=== PATIENT | male | born 1980 | race African-American/Black ===

== ENCOUNTER 2017-10-11 11:26 | Emergency (ER) | payer SELFPAY ==
[~2017-10-11] VITALS: Ht 185.4 cm; Wt 95.0 kg
[~2017-10-11 11:26] MED LIST: IBUP1TAB7 PO; ROBA750T PO
[2017-10-11 11:29] VITALS: BP 140/94; PULSE 99; RESP 20; TEMP 100.3; O2SAT 96
[2017-10-11] MEDS ORDERED: KETOROLAC TROMETHAMINE 30 MG/ML (IVP) VIAL IVP ONE (11:45)
[2017-10-11] MEDS ORDERED: SODIUM CHLOR 0.9% 1000 ML INJ 1,000 ML IV SCH (11:45)
[2017-10-11] MEDS ORDERED: MORPHINE SULFATE 4 MG/ML INJ IV PUSH ONE ×2 (11:45→13:30)
[2017-10-11] MEDS ORDERED: SODIUM CHLORIDE 0.9% FLUSH 10 ML FLUSH IV FLUSH PRN (11:45)
--- NOTE | 2017-10-11 12:10 | PD ---
HPI Chief Complaint: Respiratory Symptoms Time Seen by Provider: 11:37 Travel History International Travel<30 days: No Contact w/Intl Traveler<30days: No Traveled to known affect area: No History of Present Illness HPI This is a 36-year-old male who presents to the emergency department with left- sided flank pain that started abruptly this morning waking him from sleep, constant, severe, stabbing, making it difficult for him to breathe. He denies any nausea or vomiting and denies any fevers or chills. He has never had pain like this before. PFSH Past Medical History Medical History: Denies Significant Hx Hx Anticoagulant Therapy: No Cardiovascular Problems: No Chemotherapy: No Cerebrovascular Accident: No Diabetes: No Diminished Hearing: No Respiratory: No Past Surgical History Surgical History: No Previous Surgery Social History Alcohol Use: Yes (4 BEERS/DAY) Tobacco Use: Yes (8-10 CIGARETTES/DAY) Substance Use: No Allergies-Medications (Allergen,Severity, Reaction): Coded Allergies: No Known Allergies (Unverified Adverse Reaction, Unknown, 10/11/17) Reported Meds & Prescriptions Reported Meds & Active Scripts Active Review of Systems Except as stated in HPI: all other systems reviewed are Neg Physical Exam Narrative GENERAL: Uncomfortable appearing, gripping his left side SKIN: Focused skin assessment warm and dry. HEAD: Atraumatic. Normocephalic. EYES: Pupils equal and round. No injection or drainage. ENT: Moist mucous membranes NECK: Trachea midline. CARDIOVASCULAR: Regular rate and rhythm. No murmur appreciated. RESPIRATORY: Clear to auscultation. Breath sounds equal bilaterally. GASTROINTESTINAL: Abdomen soft, tender to palpation in the left upper quadrant and left lower quadrants with no rebound or guarding. : Left CVA tenderness. MUSCULOSKELETAL: No obvious deformities. NEUROLOGICAL: Awake and alert. No obvious cranial nerve deficits. Moving all extremities. PSYCHIATRIC: Appropriate mood and affect; insight and judgment normal. Data Data Last Documented VS Vital Signs Date Time Temp Pulse Resp B/P (MAP) Pulse Ox O2 Delivery O2 Flow Rate FiO2 10/11/17 12:21 98 Room Air 10/11/17 11:29 100.3 99 20 Orders Orders Complete Blood Count With Diff (10/11/17 11:45) Comprehensive Metabolic Panel (10/11/17 11:45) Lipase (10/11/17 11:45) Ct Abd/Pel W/O Iv Contrast (10/11/17 11:45) Iv Access Insert/Monitor (10/11/17 11:45) Ecg Monitoring (10/11/17 11:45) Oximetry (10/11/17 11:45) Morphine Inj (Morphine Inj) (10/11/17 11:45) Sodium Chlor 0.9% 1000 Ml Inj (Ns 1000 M (10/11/17 11:45) Sodium Chloride 0.9% Flush (Ns Flush) (10/11/17 11:45) Ketorolac Inj (Toradol Inj) (10/11/17 11:45) Urinalysis - C+S If Indicated (10/11/17 12:17) Chest, Single Ap (10/11/17 ) Ct Pulmonary Angiogram (10/11/17 ) Morphine Inj (Morphine Inj) (10/11/17 13:30) Labs Laboratory Tests Test 10/11/17 12:10 White Blood Count 10.6 TH/MM3 Red Blood Count 4.76 MIL/MM3 Hemoglobin 13.8 GM/DL Hematocrit 40.4 % Mean Corpuscular Volume 84.8 FL Mean Corpuscular Hemoglobin 29.1 PG Mean Corpuscular Hemoglobin Concent 34.3 % Red Cell Distribution Width 13.2 % Platelet Count 325 TH/MM3 Mean Platelet Volume 8.3 FL Neutrophils (%) (Auto) 68.5 % Lymphocytes (%) (Auto) 18.8 % Monocytes (%) (Auto) 9.5 % Eosinophils (%) (Auto) 2.8 % Basophils (%) (Auto) 0.4 % Neutrophils # (Auto) 7.3 TH/MM3 Lymphocytes # (Auto) 2.0 TH/MM3 Monocytes # (Auto) 1.0 TH/MM3 Eosinophils # (Auto) 0.3 TH/MM3 Basophils # (Auto) 0.0 TH/MM3 CBC Comment DIFF FINAL Differential Comment Blood Urea Nitrogen 13 MG/DL Creatinine 1.21 MG/DL Random Glucose 78 MG/DL Total Protein 7.8 GM/DL Albumin 3.3 GM/DL Calcium Level 8.7 MG/DL Alkaline Phosphatase 52 U/L Aspartate Amino Transf (AST/SGOT) 15 U/L Alanine Aminotransferase (ALT/SGPT) 14 U/L Total Bilirubin 0.4 MG/DL Sodium Level 138 MEQ/L Potassium Level 3.9 MEQ/L Chloride Level 105 MEQ/L Carbon Dioxide Level 28.1 MEQ/L Anion Gap 5 MEQ/L Estimat Glomerular Filtration Rate 83 ML/MIN Lipase 86 U/L MDM Medical Decision Making Medical Screen Exam Complete: Yes Emergency Medical Condition: Yes Interpretation(s) temperature 100.3, mild tachycardia, hypertension no leukocytosis electrolytes within normal limits lipase normal Last 24 hours Impressions Abdomen/Pelvis CT 10/11/17 1145 Signed Impressions: Service Date/Time: October 12:06 - CONCLUSION: 1. Negative renal colic CT. 2. There are 2 masslike densities in the lower lateral left lung measuring up to 2.7 cm. Since these opacities are adjacent to the left hemidiaphragm, these could be causing left flank pain. Junior King MD Chest X-Ray 10/11/17 0000 Signed Impressions: Service Date/Time: October 12:29 - CONCLUSION: No acute cardiopulmonary process. Delfino Head MD CT of the chest: Multiple noncalcified pulmonary nodular densities Differential Diagnosis Nephrolithiasis, pyelonephritis, pneumonia, pulmonary embolism, lung cancer Narrative Course This is a 36-year-old male who presents to the emergency department with pain in his flank associated with some shortness of breath. Patient is very uncomfortable on arrival. Initially I obtained a CT scan to evaluate for kidney stone which was negative but demonstrated some pulmonary nodules in the left lower lung. Dedicated CT of the left lower lung demonstrates multiple pulmonary nodules which could be infectious versus malignancy. Patient feels much better after pain control. He does have a low-grade temperature of 100.3. This may represent pneumonia. I still think he requires outpatient follow- up. He was given a copy of his CT and the recommendation that he obtain an outpatient PET scan. He will be referred to [facility]. Diagnosis Primary Impression: Flank pain Patient Instructions: General Instructions Additional Instructions: If you develop severe chest pain, shortness of breath, sweating, lightheadedness , dizziness or difficulty breathing return to the emergency department immediately. It is very important that you follow-up with a primary care physician regarding your CT findings. You have several nodules in your left lung which may be infection but we cannot rule out nodules or cancer. This needs to be followed up as an outpatient. Complete your course of antibiotics and make an appointment with [facility]. Med/Other Pt SpecificInfo: Prescription(s) given Scripts Tramadol (Tramadol) 50 Mg Tab 50 MG PO Q6H Y for PAIN, #10 TAB 0 Refills Prov: Prachi Choudhary MD 10/11/17 Azithromycin (Azithromycin) 250 Mg Tab 250 MG PO DIRECTED for Infection, #6 TAB 0 Refills Take 2 tabs (500 mg) on day 1 then 1 tab daily x 4 days. Prov: Prachi Choudhary MD 10/11/17 Disposition: 01 DISCHARGE HOME Condition: Stable Prachi Choudhary MD Oct 11, 2017 12:10
[2017-10-11 12:21] VITALS: O2SAT 98
[2017-10-11 12:38] LABS: AUTOMATED NEUTROPHIL # 7.3 TH/MM3 (1.8-7.7); BASOPHIL % 0.4 % (0.0-2.0); EOSINOPHIL # 0.3 TH/MM3 (0-0.4); EOSINOPHIL % 2.8 % (0.0-4.0); HEMATOCRIT 40.4 % (39.0-51.0); HEMOGLOBIN 13.8 GM/DL (13.0-17.0); LYMPH % 18.8 % (9.0-44.0); MEAN CELL VOLUME 84.8 FL (80.0-100.0); MEAN CORPUSCULAR HEMOGLOBIN 29.1 PG (27.0-34.0); MEAN CORPUSCULAR HGB CONC 34.3 % (32.0-36.0); MEAN PLATELET VOLUME 8.3 FL (7.0-11.0); MONO % 9.5 % (0.0-8.0); NEUT % 68.5 % (16.0-70.0); PLATELET COUNT 325 TH/MM3 (150-450); RED BLOOD COUNT 4.76 MIL/MM3 (4.50-5.90); RED CELL DISTRIBUTION WIDTH 13.2 % (11.6-17.2); WHITE BLOOD COUNT 10.6 TH/MM3 (4.0-11.0)
--- NOTE | 2017-10-11 12:48 | RADRPT ---
EXAM DATE/TIME: 10/11/2017 12:06 [facility] COMPARISON: CHEST SINGLE AP, October 11, 2017, 12:29. INDICATIONS : Patient awoke with left flank pain ORAL CONTRAST: No oral contrast ingested. RADIATION DOSE: 10.30 CTDIvol (mGy) MEDICAL HISTORY : None SURGICAL HISTORY : None. ENCOUNTER: Initial ACUITY: 1 day PAIN SCALE: 10/10 LOCATION: Left flank TECHNIQUE: Renal colic protocol. Volumetric scanning of the abdomen and pelvis was performed. Using automated e xposure control and adjustment of the mA and/or kV according to patient size, radiation dose was kept as low as reasonably achievable to obtain optimal diagnostic quality images. DICOM format image jodie a is available electronically for review and comparison. FINDINGS: Right side: No calcified renal stones. No hydronephrosis. No calcifications along the course of the right ureter. Left side: No calcified renal stones. No hydronephrosis. No calcifications along the course of the left ureter. Bladder: Smooth margins. No calcifications in the lumen. Other: No calcified gallstones. Abnormal appearance to the left lower lobe with 2 mass like opacities in the posterior and lateral costophrenic angle measuring 2.3 cm and 2.7 cm respectively. No evidence pleur al effusion. Osseous structures are grossly intact. CONCLUSION: 1. Negative renal colic CT. 2. There are 2 masslike densities in the lower lateral left lung measuring up to 2.7 cm. Since these opacities are adjacent to the left hemidiaphragm, these could be causing left flank pain. Junior King MD on October 11, 2017 at 12:43 Board Certified Radiologist. This report was verified electronically.
--- NOTE | 2017-10-11 12:51 | RADRPT ---
EXAM DATE/TIME: 10/11/2017 12:29 [facility] COMPARISON: CHEST SINGLE AP, July 11, 2016, 10:54. INDICATIONS : Chest pain. MEDICAL HISTORY : None. SURGICAL HISTORY : None. ENCOUNTER: Initial ACUITY: 1 day PAIN SCORE: 6/10 LOCATION: Bilateral chest FINDINGS: A single view of the chest demonstrates the lungs to be symmetrically aerated without evidence of mas s, infiltrate or effusion. The cardiomediastinal contours are unremarkable. Osseous structures are intact with a levoscoliosis of the dorsal spine which may be positional. CONCLUSION: No acute cardiopulmonary process. Delfino Head MD on October 11, 2017 at 12:48 Board Certified Radiologist. This report was verified electronically.
[2017-10-11 13:03] LABS: ALBUMIN 3.3 GM/DL (3.4-5.0); AST (GOT) 15 U/L (15-37); BICARBONATE 28.1 MEQ/L (21.0-32.0); BLOOD UREA NITROGEN 13 MG/DL (7-18); CALCIUM 8.7 MG/DL (8.5-10.1); CHLORIDE 105 MEQ/L (98-107); CREATININE 1.21 MG/DL (0.60-1.30); GLOMERULAR FILTRATION RATE 83 ML/MIN (>89); GLUCOSE,RANDOM 78 MG/DL (74-106); SODIUM (NA) 138 MEQ/L (136-145)
[2017-10-11 13:06] LABS: ALKALINE PHOSPHATASE 52 U/L (45-117); ALT (GPT) 14 U/L (12-78); TOTAL BILIRUBIN ADULT 0.4 MG/DL (0.2-1.0); TOTAL PROTEIN 7.8 GM/DL (6.4-8.2)
[2017-10-11] MEDS ORDERED: IOHEXOL 350 MG/ML 10 ML VIAL (for RAD DIAG) IVCONTRAST ONE (13:29)
--- NOTE | 2017-10-11 14:00 | RADRPT ---
EXAM DATE/TIME: 10/11/2017 13:29 [facility] COMPARISON: No previous studies available for comparison. INDICATIONS : Left lateral chest pain, back pain IV CONTRAST: 60 cc Omnipaque 350 (iohexol) IV RADIATION DOSE: 15.15 CTDIvol (mGy) MEDICAL HISTORY : None SURGICAL HISTORY : None. ENCOUNTER: Initial ACUITY: 1 day PAIN SCALE: 9/10 LOCATION: chest TECHNIQUE: Volumetric scanning of the chest was performed using a pulmonary embolism protocol MIP images were re constructed. Using automated exposure control and adjustment of the mA and/or kV according to patien t size, radiation dose was kept as low as reasonably achievable to obtain optimal diagnostic quality images. DICOM format image data is available electronically for review and comparison. Follow-up recommendations for detected pulmonary nodules are based at a minimum on nodule size and pa tient risk factors according to Fleischner Society Guidelines. FINDINGS: PULMONARY ARTERIES: No filling defects are seen in the pulmonary arteries through the segmental level. LUNGS: Nodular densities are noted within the left lower lobe measuring 2.3 cm, 2.5 cm and 0.9 cm. There is also a nodular density within the right lower lobe measuring 0.9 cm. Differential diagnosis includes nodular infiltrates or true pulmonary nodules. If these do represent true pulmonary nodules, metastat ic disease should be considered. PLEURAE: There is no pleural thickening or pleural effusion. MEDIASTINUM: There is good visualization of the great vessels of the middle mediastinum. No evidence of mediastin al or hilar adenopathy/mass. Coronary artery calcifications. MUSCULOSKELETAL: Mild scoliosis of the thoracic spine is noted. MISCELLANEOUS: The visualized upper abdominal organs demonstrate no acute abnormality. CONCLUSION: 1. Multiple noncalcified pulmonary nodular densities bilaterally measuring 2.5, 2.3 and 0.9 cm within the left lower lobe and 0.9 cm within the right lower lobe. Differential includes nodular infiltrate s or true pulmonary nodules. PET/CT scan may be helpful for further evaluation if these do represent true pulmonary nodules. 2. No evidence of pulmonary embolism. 3. Coronary artery calcifications. Jean-Pierre Jordan MD on October 11, 2017 at 13:49 Board Certified Radiologist. This report was verified electronically.
[2017-10-11] MEDS ORDERED: TRAM50TA PO (14:10)
[2017-10-11] MEDS ORDERED: AZIT250T3 PO (14:10)
[2017-10-11 14:24] LABS: BILIRUBIN, URINE NEG (NEG); BLOOD, URINE NEG (NEG); GLUCOSE,URINE NEG (NEG); HYALINE CAST, URINE 1 /lpf (RARE); KETONE, URINE NEG (NEG); MUCUS URINE FEW /lpf (OCC); NITRITE,URINE NEG (NEG); PH, URINE 6.5 (5.0-8.5); URINE COLOR YELLOW (YELLW/STRAW); URINE LEUKOCYTE ESTERASE NEG (NEG)
== END 2017-10-11 14:41 | disposition home or self-care (01) ==
LOC: NEPD 11:26
DX: R10.9 Unspecified abdominal pain (principal); R06.02 Shortness of breath; F17.210 Nicotine dependence, cigarettes, uncomplicated
CPT/HCPCS: 71045; 71275; 74176; 80053; 81001; 83690; 85025; 96361; 96374; 96375; 96376; 99285; J1885; J2270; J7030; Q9967

== ENCOUNTER 2017-10-12 04:53 | Observation (INO) | payer SELFPAY ==
[~2017-10-12] VITALS: Ht 185.4 cm; Wt 95.0 kg
[~2017-10-12 04:53] MED LIST changes: +AZIT250T3 PO; -IBUP1TAB7 PO; -ROBA750T PO; +TRAM50TA PO
[2017-10-12 04:58] VITALS: BP 172/69; PULSE 89; RESP 20; TEMP 98.8; O2SAT 99
[2017-10-12] MEDS ORDERED: KETOROLAC TROMETHAMINE 30 MG/ML (IVP) VIAL IV PUSH ONE (05:15)
[2017-10-12] MEDS ORDERED: ONDANSETRON HCL 4 MG/2 ML VIAL IV PUSH ONE (05:15)
[2017-10-12] MEDS ORDERED: FAMOTIDINE 20 MG/2 ML VIAL IV PUSH SCH (05:15)
--- NOTE | 2017-10-12 06:39 | PD ---
HPI Chief Complaint: Flank/Kidney Pain Time Seen by Provider: 05:01 Travel History International Travel<30 days: No Contact w/Intl Traveler<30days: No Traveled to known affect area: No History of Present Illness HPI Patient is a 36-year-old male who was here yesterday less than 24 hours ago in the ER with sudden onset of left-sided chest pain and shortness of breath severe stabbing back pain. He was seen CAT scan was done of his chest abdomen which showed 2.5 cm nodules versus nodular infiltrates in the left lung he was sent home on azithromycin and tramadol. He is coming back tonight with worsening severe pain. Also getting worse shortness of breath getting worse unable to tolerate sharp stabbing pain in the left lower back area to flank left area pain is 10 out of 10 shortness of breath is associated with it and diaphoresis. Patient denies travel denies outside of the country nor incarceration. Patient denies any risk factors for tuberculosis. Patient did start using a vaporizer pen this last week. No sick contacts [facility] Past Medical History Medical History: Denies Significant Hx Hx Anticoagulant Therapy: No Cardiovascular Problems: No Chemotherapy: No Cerebrovascular Accident: No Diabetes: No Diminished Hearing: No Respiratory: No Past Surgical History Surgical History: No Previous Surgery Social History Alcohol Use: Yes (4 BEERS/DAY) Tobacco Use: Yes (8-10 CIGARETTES/DAY) Substance Use: No Allergies-Medications (Allergen,Severity, Reaction): Coded Allergies: No Known Allergies (Unverified Allergy, Unknown, 10/12/17) Reported Meds & Prescriptions Reported Meds & Active Scripts Active Physical Exam Narrative GENERAL: Patient appears to be in severe pain and emotional distress SKIN: Warm and dry. HEAD: Atraumatic. Normocephalic. EYES: Pupils equal and round. No scleral icterus. No injection or drainage. ENT: No nasal bleeding or discharge. Mucous membranes pink and moist. NECK: Trachea midline. No JVD. CARDIOVASCULAR: Regular rate and rhythm. RESPIRATORY: . Left lower lung there is decreased breath sound . GASTROINTESTINAL: Abdomen soft, non-tender, nondistended. Hepatic and splenic margins not palpable. MUSCULOSKELETAL: Extremities without clubbing, cyanosis, or edema. No obvious deformities. NEUROLOGICAL: Awake and alert. No obvious cranial nerve deficits. Motor grossly within normal limits. Five out of 5 muscle strength in the arms and legs. Normal speech. PSYCHIATRIC: Appropriate mood and affect; insight and judgment normal. Data Data Last Documented VS Orders Orders Ondansetron Inj (Zofran Inj) (10/12/17 05:15) Famotidine Inj (Pepcid Inj) (10/12/17 05:15) Ketorolac Inj (Toradol Inj) (10/12/17 05:15) Complete Blood Count With Diff (10/12/17 06:26) Comprehensive Metabolic Panel (10/12/17 06:26) Blood Culture (10/12/17 06:26) Sputum Culture And Gram Stain (10/12/17 06:26) Albuterol-Ipratropium Neb (Duoneb Neb) (10/12/17 06:45) Admit Order (Ed Use Only) (10/12/17 07:57) Labs Laboratory Tests Test 10/12/17 06:30 White Blood Count 17.4 TH/MM3 Red Blood Count 4.62 MIL/MM3 Hemoglobin 13.5 GM/DL Hematocrit 39.7 % Mean Corpuscular Volume 85.9 FL Mean Corpuscular Hemoglobin 29.2 PG Mean Corpuscular Hemoglobin Concent 34.0 % Red Cell Distribution Width 13.1 % Platelet Count 359 TH/MM3 Mean Platelet Volume 8.9 FL Neutrophils (%) (Auto) 64.4 % Lymphocytes (%) (Auto) 25.0 % Monocytes (%) (Auto) 8.2 % Eosinophils (%) (Auto) 2.2 % Basophils (%) (Auto) 0.2 % Neutrophils # (Auto) 11.2 TH/MM3 Lymphocytes # (Auto) 4.3 TH/MM3 Monocytes # (Auto) 1.4 TH/MM3 Eosinophils # (Auto) 0.4 TH/MM3 Basophils # (Auto) 0.0 TH/MM3 CBC Comment DIFF FINAL Differential Comment Blood Urea Nitrogen 13 MG/DL Creatinine 1.05 MG/DL Random Glucose 91 MG/DL Total Protein 8.3 GM/DL Albumin 3.5 GM/DL Calcium Level 8.8 MG/DL Alkaline Phosphatase 58 U/L Aspartate Amino Transf (AST/SGOT) 19 U/L Alanine Aminotransferase (ALT/SGPT) 16 U/L Total Bilirubin 0.4 MG/DL Sodium Level 139 MEQ/L Potassium Level 4.1 MEQ/L Chloride Level 102 MEQ/L Carbon Dioxide Level 30.2 MEQ/L Anion Gap 7 MEQ/L Estimat Glomerular Filtration Rate 97 ML/MIN MDM Medical Decision Making Medical Screen Exam Complete: Yes Emergency Medical Condition: Yes Differential Diagnosis diagnosis include nodular densities in the lung field versus nodular infiltrates of the left lung bacterial infection versus TB possible lower on differential due to lower lobe septic emboli, second visit within 24 hrs and elevated wbc now greatly increased from earlier Narrative Course CT reviewed by this MD and I feel with worsening cough SOB and lab show WBC jump to 17 I will cover him with levaquin and admit for Pulmonary consult possible biopsy and pain management inpt Diagnosis Primary Impression: Pneumonia Qualified Codes: J18.1 - Lobar pneumonia, unspecified organism Scripts Levofloxacin (Levaquin) 500 Mg Tablet 500 MG PO DAILY for Infection for 10 Days, #10 TAB 0 Refills Prov: Jasper Estrella DO 10/13/17 Methylprednisolone Dosepak (Medrol Dosepak) 4 Mg Dspk 4 MG PO DIRECTED for Inflammation, #1 DSPK 0 Refills Per Pharmacist direction Prov: Jasper Estrella DO 10/13/17 Albuterol 18 GM Inh (Ventolin Hfa 18 GM Inh) 90 Mcg/Act Aer 2 PUFF INH Q4H Y for SHORTNESS OF BREATH, #1 INHALER 0 Refills Prov: Jasper Estrella DO 10/13/17 Multiple Vitamins W/ Minerals (Thera M Plus) 1 Tab 1 TAB PO DAILY for Nutritional Supplement, #30 TAB Prov: Jasper Estrella DO 10/13/17 Thiamine HCl (Gnp Vitamin B-1) 100 Mg Tab 100 MG PO DAILY for Nutritional Supplement, #30 TAB Prov: Jasper Estrella DO 10/13/17 Folic Acid (Folic Acid) 1 Mg Tablet 1 MG PO DAILY for Nutritional Supplement, #30 TAB Prov: Jasper Estrella DO 10/13/17 Famotidine (Famotidine) 20 Mg Tab 20 MG PO BID for Manage Heartburn, #60 TAB Prov: Jasper Estrella DO 10/13/17 [guaiFENesin ER] 600 MG TABCR No Conflict Check 600 MG PO BID for Cough, #60 TAB Prov: Jasper Estrella DO 10/13/17 Oxycodone HCl/Acetaminophen (Oxycodone-Acetaminophen 5-325) 5 Mg-325 Mg Tablet 1 TAB PO Q6H Y for PAIN SCALE 6 TO 10, #30 TAB Prov: Jasper Estrella DO 10/13/17 Nicotine (Eq Nicotine) 14 Mg/24 Hour Dis 1 PATCH T-DERMAL DAILY for TOBACCO, #30 PATCH Prov: Jasper Estrella DO 10/13/17 Abdirashid Cohen MD Oct 12, 2017 06:39
[2017-10-12] MEDS ORDERED: RESP: ALBUTEROL 2.5 MG/IPRATROPIUM 0.5 MG NEB (SCH) NEB ONE (06:45)
[2017-10-12 06:50] LABS: AUTOMATED NEUTROPHIL # 11.2 TH/MM3 (1.8-7.7); BASOPHIL % 0.2 % (0.0-2.0); EOSINOPHIL # 0.4 TH/MM3 (0-0.4); EOSINOPHIL % 2.2 % (0.0-4.0); HEMATOCRIT 39.7 % (39.0-51.0); HEMOGLOBIN 13.5 GM/DL (13.0-17.0); LYMPHOCYTE # 4.3 TH/MM3 (1.0-4.8); MEAN CELL VOLUME 85.9 FL (80.0-100.0); MEAN CORPUSCULAR HEMOGLOBIN 29.2 PG (27.0-34.0); MEAN PLATELET VOLUME 8.9 FL (7.0-11.0); MONO % 8.2 % (0.0-8.0); MONOCYTE # 1.4 TH/MM3 (0-0.9); NEUT % 64.4 % (16.0-70.0); PLATELET COUNT 359 TH/MM3 (150-450); RED BLOOD COUNT 4.62 MIL/MM3 (4.50-5.90); RED CELL DISTRIBUTION WIDTH 13.1 % (11.6-17.2); WHITE BLOOD COUNT 17.4 TH/MM3 (4.0-11.0)
[2017-10-12 07:07] LABS: ALBUMIN 3.5 GM/DL (3.4-5.0); ALT (GPT) 16 U/L (12-78); AST (GOT) 19 U/L (15-37); BICARBONATE 30.2 MEQ/L (21.0-32.0); BLOOD UREA NITROGEN 13 MG/DL (7-18); CALCIUM 8.8 MG/DL (8.5-10.1); CHLORIDE 102 MEQ/L (98-107); CREATININE 1.05 MG/DL (0.60-1.30); GLOMERULAR FILTRATION RATE 97 ML/MIN (>89); GLUCOSE,RANDOM 91 MG/DL (74-106); SODIUM (NA) 139 MEQ/L (136-145)
[2017-10-12 07:09] LABS: ALKALINE PHOSPHATASE 58 U/L (45-117); TOTAL BILIRUBIN ADULT 0.4 MG/DL (0.2-1.0); TOTAL PROTEIN 8.3 GM/DL (6.4-8.2)
--- NOTE | 2017-10-12 07:24 | PD ---
Physical Exam Narrative GENERAL: SKIN: Warm and dry. HEAD: Atraumatic. Normocephalic. EYES: Pupils equal and round. No scleral icterus. No injection or drainage. ENT: No nasal bleeding or discharge. Mucous membranes pink and moist. NECK: Trachea midline. No JVD. CARDIOVASCULAR: Regular rate and rhythm. RESPIRATORY: No accessory muscle use. Clear to auscultation. Breath sounds equal bilaterally. (apparent pleuritic cp with deep breath noted) GASTROINTESTINAL: Abdomen soft, non-tender, nondistended. Hepatic and splenic margins not palpable. MUSCULOSKELETAL: Extremities without clubbing, cyanosis, or edema. No obvious deformities. NEUROLOGICAL: Awake and alert. No obvious cranial nerve deficits. Motor grossly within normal limits. Five out of 5 muscle strength in the arms and legs. Normal speech. PSYCHIATRIC: Appropriate mood and affect; insight and judgment normal. Data Data Last Documented VS Vital Signs Date Time Temp Pulse Resp B/P (MAP) Pulse Ox O2 Delivery O2 Flow Rate FiO2 10/12/17 04:58 98.8 89 20 172/69 (103) 99 Orders Orders Ondansetron Inj (Zofran Inj) (10/12/17 05:15) Famotidine Inj (Pepcid Inj) (10/12/17 05:15) Ketorolac Inj (Toradol Inj) (10/12/17 05:15) Complete Blood Count With Diff (10/12/17 06:26) Comprehensive Metabolic Panel (10/12/17 06:26) Blood Culture (10/12/17 06:26) Sputum Culture And Gram Stain (10/12/17 06:26) Albuterol-Ipratropium Neb (Duoneb Neb) (10/12/17 06:45) Admit Order (Ed Use Only) (10/12/17 07:57) Labs Laboratory Tests Test 10/12/17 06:30 White Blood Count 17.4 TH/MM3 Red Blood Count 4.62 MIL/MM3 Hemoglobin 13.5 GM/DL Hematocrit 39.7 % Mean Corpuscular Volume 85.9 FL Mean Corpuscular Hemoglobin 29.2 PG Mean Corpuscular Hemoglobin Concent 34.0 % Red Cell Distribution Width 13.1 % Platelet Count 359 TH/MM3 Mean Platelet Volume 8.9 FL Neutrophils (%) (Auto) 64.4 % Lymphocytes (%) (Auto) 25.0 % Monocytes (%) (Auto) 8.2 % Eosinophils (%) (Auto) 2.2 % Basophils (%) (Auto) 0.2 % Neutrophils # (Auto) 11.2 TH/MM3 Lymphocytes # (Auto) 4.3 TH/MM3 Monocytes # (Auto) 1.4 TH/MM3 Eosinophils # (Auto) 0.4 TH/MM3 Basophils # (Auto) 0.0 TH/MM3 CBC Comment DIFF FINAL Differential Comment Blood Urea Nitrogen 13 MG/DL Creatinine 1.05 MG/DL Random Glucose 91 MG/DL Total Protein 8.3 GM/DL Albumin 3.5 GM/DL Calcium Level 8.8 MG/DL Alkaline Phosphatase 58 U/L Aspartate Amino Transf (AST/SGOT) 19 U/L Alanine Aminotransferase (ALT/SGPT) 16 U/L Total Bilirubin 0.4 MG/DL Sodium Level 139 MEQ/L Potassium Level 4.1 MEQ/L Chloride Level 102 MEQ/L Carbon Dioxide Level 30.2 MEQ/L Anion Gap 7 MEQ/L Estimat Glomerular Filtration Rate 97 ML/MIN [facility] Medical Record Reviewed: Yes Supervised Visit with CHRISTINE: No Narrative Course seen and noted to have nodular infiltrates on ct, was seen and treated yesterday with tramadol and zpak. however pt returned b/c of worsening pain, of concern repeat cbc wbc increased from 10 to 17k, dr moraes signed out pending lab results and suggested admission. Sepsis Criteria SIRS Criteria (2 or more): WBC > 77308, < 4000 or > 10% bands Sepsis Criteria (SIRS+source): Infect source susp/known Diagnosis Primary Impression: Pneumonia Qualified Codes: J18.1 - Lobar pneumonia, unspecified organism Admitting Information Admitting Physician Requests: Observation Scripts Levofloxacin (Levaquin) 500 Mg Tablet 500 MG PO DAILY for Infection for 10 Days, #10 TAB 0 Refills Prov: Jasper Estrella DO 10/13/17 Methylprednisolone Dosepak (Medrol Dosepak) 4 Mg Dspk 4 MG PO DIRECTED for Inflammation, #1 DSPK 0 Refills Per Pharmacist direction Prov: Jasper Estrella DO 10/13/17 Albuterol 18 GM Inh (Ventolin Hfa 18 GM Inh) 90 Mcg/Act Aer 2 PUFF INH Q4H Y for SHORTNESS OF BREATH, #1 INHALER 0 Refills Prov: Jasper Estrella DO 10/13/17 Multiple Vitamins W/ Minerals (Thera M Plus) 1 Tab 1 TAB PO DAILY for Nutritional Supplement, #30 TAB Prov: Jasper Estrella DO 10/13/17 Thiamine HCl (Gnp Vitamin B-1) 100 Mg Tab 100 MG PO DAILY for Nutritional Supplement, #30 TAB Prov: Jasper Estrella DO 10/13/17 Folic Acid (Folic Acid) 1 Mg Tablet 1 MG PO DAILY for Nutritional Supplement, #30 TAB Prov: Jasepr Estrella DO 10/13/17 Famotidine (Famotidine) 20 Mg Tab 20 MG PO BID for Manage Heartburn, #60 TAB Prov: Jasper Estrella DO 10/13/17 [guaiFENesin ER] 600 MG TABCR No Conflict Check 600 MG PO BID for Cough, #60 TAB Prov: Jasper Estrella DO 10/13/17 Oxycodone HCl/Acetaminophen (Oxycodone-Acetaminophen 5-325) 5 Mg-325 Mg Tablet 1 TAB PO Q6H Y for PAIN SCALE 6 TO 10, #30 TAB Prov: Jasper Estrella DO 10/13/17 Nicotine (Eq Nicotine) 14 Mg/24 Hour Dis 1 PATCH T-DERMAL DAILY for TOBACCO, #30 PATCH Prov: Jasper Estrella DO 10/13/17 Marlon Ge MD Oct 12, 2017 07:24
[2017-10-12 08:13] VITALS: BP 146/69; PULSE 71; RESP 18; O2SAT 99
[2017-10-12] MEDS ORDERED: LORazepam 2 MG TAB PO PRN ×2 (08:45)
[2017-10-12] MEDS ORDERED: METOCLOPRAMIDE HCL 10 MG/2 ML VIAL IV PUSH PRN (08:45)
[2017-10-12] MEDS ORDERED: ONDANSETRON HCL 4 MG/2 ML VIAL IVP PRN (08:45)
[2017-10-12] MEDS ORDERED: LACTULOSE SYRUP 20 GM/30 ML CUP PO PRN (08:45)
[2017-10-12] MEDS ORDERED: LORazepam 2 MG/ML VIAL IV PUSH PRN ×8 (08:45)
[2017-10-12] MEDS ORDERED: LORazepam 1 MG TAB PO PRN ×2 (08:45)
[2017-10-12] MEDS ORDERED: MORPHINE SULFATE 4 MG/ML INJ IV PUSH PRN ×2 (08:45)
[2017-10-12] MEDS ORDERED: RESP: ALBUTEROL 2.5 MG/IPRATROPIUM 0.5 MG NEB (PRN) INH (08:45)
[2017-10-12] MEDS ORDERED: cloNIDine HCL 0.1 MG TAB PO PRN (08:45)
[2017-10-12] MEDS ORDERED: BISACODYL 10 MG SUPP RECTAL PRN (08:45)
[2017-10-12] MEDS ORDERED: ACETAMINOPHEN 325 MG TAB PO PRN ×2 (08:45)
[2017-10-12] MEDS ORDERED: SODIUM CHLORIDE 0.9% FLUSH 10 ML FLUSH IV FLUSH PRN ×3 (08:45)
[2017-10-12] MEDS ORDERED: MAGNESIUM HYDROXIDE SUSP 30 ML CUP PO PRN (08:45)
[2017-10-12] MEDS ORDERED: SENNOSIDES 8.6 MG TAB PO PRN (08:45)
[2017-10-12] MEDS ORDERED: oxyCODONE/ACETAMINOPHEN 5 MG/325 MG TAB PO PRN (08:45)
[2017-10-12] MEDS ORDERED: MORPHINE SULFATE 2 MG/ML INJ IV PUSH PRN (08:45)
[2017-10-12] MEDS ORDERED: ZOLPIDEM TARTRATE 5 MG TAB PO PRN (08:45)
[2017-10-12] MEDS ORDERED: NALOXONE HCL 0.4 MG/ML AMP IV PUSH PRN (08:45)
[2017-10-12] MEDS ORDERED: FLUMAZENIL 0.5 MG/5 ML VIAL IV PUSH PRN ×2 (08:45)
[2017-10-12] MEDS: SODIUM CHLORIDE 0.9% FLUSH 10 ML FLUSH IV FLUSH SCH ×2 (09:00→21:00)
[2017-10-12] MEDS ORDERED: SODIUM CHLORIDE 0.9% FLUSH 10 ML FLUSH IV FLUSH SCH ×2 (09:00)
[2017-10-12] MEDS: DOCUSATE SODIUM 50 MG/SENNA 8.6 MG TAB PO SCH ×2 (09:00→21:00)
[2017-10-12] MEDS: REMOVE OLD PATCH T-DERMAL SCH (09:00)
[2017-10-12] MEDS: NICOTINE 14 MG/24 HR PATCH T-DERMAL SCH ×2 (09:00→12:40)
--- NOTE | 2017-10-12 09:05 | HHI.HP ---
[facility] Physician Link Jameson MD Admission Diagnosis NODULAR INFILTRATES, LEUKOCYTOSIS Diagnoses: Chief Complaint: PATIENT PRESENTS WITH LEFT SIDE CHEST PAIN AND NODULES VS NODULAR INFILTRATE Travel History International Travel<30 Days: No Contact w/Intl Traveler <30 Da: No Traveled to Known Affected Are: No Sepsis Criteria SIRS Criteria (2 or more): Temp > 100.9 or < 96.8, Heart rate over 90, WBC > 41665, < 4000 or > 10% bands Sepsis Criteria (SIRS+source): Infect source susp/known (PNEUMONIA ON LEFT) History of Present Illness Patient is a 36-year-old male. He was seen yesterday in the emergency department with sudden onset of left-sided chest pain and then had some shortness of breath with some stabbing back pain. Had a CAT scan which was done of his chest abdomen and abdomen showed 2.5 cm nodules versus a questionable nodular infiltrate in left lung. He had been discharged on azithromycin and tramadol. Patient re-presented to the hospital with worsening pain. AND worsening shortness of breath AND HE is unable to tolerate the sharp stabbing pain in the left lower back area WITH flank pain was 10 out of 10 had some shortness of breath. And some sweats. Denies any recent travel. Denies any risk factors for tuberculosis. Started using a vaporizer pen along with his cigarette use. Also smokes marijuana patient also drinks daily Review of Systems Constitutional: COMPLAINS OF: Diaphoretic episodes, Fatigue, Fever, Chills, DENIES: Weight gain, Weight loss, Dizziness, Change in appetite Endocrine: DENIES: Heat/cold intolerance, Polydipsia, Polyuria, Polyphagia Eyes: DENIES: Blurred vision, Diplopia, Eye inflammation, Eye pain, Vision loss Ears, nose, mouth, throat: DENIES: Tinnitus, Hearing loss, Vertigo, Nasal discharge, Oral lesions, Throat pain Respiratory: COMPLAINS OF: Cough, Shortness of breath, DENIES: Apneas, Snoring , Wheezing, Hemoptysis, Sputum production Cardiovascular: COMPLAINS OF: Chest pain, DENIES: Palpitations, Syncope, Dyspnea on Exertion, PND, Lower Extremity Edema, Orthopnea, Claudication Gastrointestinal: DENIES: Abdominal pain, Black stools, Bloody stools, Constipation, Diarrhea, Nausea, Vomiting Genitourinary: DENIES: Sexual dysfunction, Urinary frequency, Urinary incontinence, Urgency Musculoskeletal: DENIES: Joint pain, Muscle aches, Stiffness, Joint Swelling, Back pain, Neck pain Integumentary: DENIES: Abnormal pigmentation, Nail changes, Pruritus Hematologic/lymphatic: DENIES: Bruising, Lymphadenopathy Immunologic/allergic: DENIES: Eczema, Urticaria Neurologic: DENIES: Abnormal gait, Headache, Localized weakness, Paresthesias, Seizures, Speech Problems Psychiatric: DENIES: Anxiety, Confusion, Mood changes, Depression, Hallucinations Except as stated in HPI: all other systems reviewed are Neg Past Family Social History Past Medical History Tobacco use Daily alcohol use Daily marijuana use at bedtime Past Surgical History Denies Reported Medications Reported Meds & Active Scripts Active Tramadol (Tramadol HCl) 50 Mg Tab 50 Mg PO Q6H PRN Azithromycin 250 Mg Tab 250 Mg PO DIRECTED Take 2 tabs (500 mg) on day 1 then 1 tab daily x 4 days. Allergies: Coded Allergies: No Known Allergies (Unverified Adverse Reaction, Unknown, 10/11/17) Active Ordered Medications Current Medications Ondansetron HCl (Zofran Inj) 4 mg ONCE ONCE IV PUSH Last administered on at 05:13; Start 10/12/17 at 05:15; Stop 10/12/17 at 05:16; Status DC Famotidine (Pepcid Inj) 20 mg ONCE IV PUSH Last administered on 10/12/17at 05:14 ; Start 10/12/17 at 05:15 Ketorolac Tromethamine (Toradol Inj) 30 mg ONCE ONCE IV PUSH Last administered on 10/12/17at 05:13; Start 10/12/17 at 05:15; Stop 10/12/17 at 05:16; Status DC Albuterol/ Ipratropium (Duoneb Neb) 1 ampule ONCE ONCE NEB Last administered on 10/12/17at 06:36; Start 10/12/17 at 06:45; Stop 10/12/17 at 06:46; Status DC Family History Father has diabetes. Mother has no medical problems. 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 SKIN: No rashes, ecchymoses or lesions. Cool and dry. HEAD: Atraumatic. Normocephalic. No temporal or scalp tenderness. EYES: Pupils equal round and reactive. Extraocular motions intact. No scleral icterus. No injection or drainage. ENT: Nose without bleeding, purulent drainage or septal hematoma. Throat without erythema, tonsillar hypertrophy or exudate. Uvula midline. Airway patent. NECK: Trachea midline. No JVD or lymphadenopathy. Supple, nontender, no meningeal signs. CARDIOVASCULAR: Regular rate and rhythm without murmurs, gallops, or rubs. S1 and S2 no S3 or S4 RESPIRATORY: Coarse breath sounds bilaterally. Breath sounds equal bilaterally. Some scattered rhonchi GASTROINTESTINAL: Abdomen soft, non-tender, nondistended. No hepato-splenomegaly , or palpable masses. No guarding. MUSCULOSKELETAL: Extremities without clubbing, cyanosis, or edema. No joint tenderness, effusion, or edema noted. No calf tenderness. Negative Homans sign bilaterally. NEUROLOGICAL: Awake and alert. Cranial nerves II through XII intact. Motor and sensory grossly within normal limits. Five out of 5 muscle strength in all muscle groups. Normal speech. Insight and judgment is good Mood and behavior is Appropriate Laboratory Laboratory Tests Test 10/12/17 06:30 White Blood Count 17.4 Red Blood Count 4.62 Hemoglobin 13.5 Hematocrit 39.7 Mean Corpuscular Volume 85.9 Mean Corpuscular Hemoglobin 29.2 Mean Corpuscular Hemoglobin Concent 34.0 Red Cell Distribution Width 13.1 Platelet Count 359 Mean Platelet Volume 8.9 Neutrophils (%) (Auto) 64.4 Lymphocytes (%) (Auto) 25.0 Monocytes (%) (Auto) 8.2 Eosinophils (%) (Auto) 2.2 Basophils (%) (Auto) 0.2 Neutrophils # (Auto) 11.2 Lymphocytes # (Auto) 4.3 Monocytes # (Auto) 1.4 Eosinophils # (Auto) 0.4 Basophils # (Auto) 0.0 CBC Comment DIFF FINAL Differential Comment Blood Urea Nitrogen 13 Creatinine 1.05 Random Glucose 91 Total Protein 8.3 Albumin 3.5 Calcium Level 8.8 Alkaline Phosphatase 58 Aspartate Amino Transf (AST/SGOT) 19 Alanine Aminotransferase (ALT/SGPT) 16 Total Bilirubin 0.4 Sodium Level 139 Potassium Level 4.1 Chloride Level 102 Carbon Dioxide Level 30.2 Anion Gap 7 Estimat Glomerular Filtration Rate 97 Date/Time Source Procedure Growth Status 10/12/17 06:35 Blood Peripheral Aerobic Blood Culture Pending Received 10/12/17 06:35 Blood Peripheral Anaerobic Blood Culture Pending Received Result Diagram: 10/12/1762910/12/1730 Caprini VTE Risk Assessment Caprini VTE Risk Assessment: Mod/High Risk (score >= 2) Caprini Risk Assessment Model Point Value = 1 Point Value = 2 Point Value = 3 Point Value = 5 Age 41-60 Minor surgery BMI > 25 kg/m2 Swollen legs Varicose veins or History of unexplained or recurrent spontaneous Oral contraceptives or hormone replacement Sepsis (< 1 month) Serious lung disease, including pneumonia (< 1 month) Abnormal pulmonary function Acute myocardial infarction Congestive heart failure (< 1 month) History of inflammatory bowel disease Medical patient at bed rest Age 61-74 Arthroscopic surgery Major open surgery (> 45 min) Laparoscopic surgery (> 45 min) Malignancy Confined to bed (> 72 hours) Immobilizing plaster cast Central venous access Age >= 75 History of VTE Family history of VTE Factor V Leiden Prothrombin 12220M Lupus anticoagulant Anticardiolipin antibodies Elevated serum homocysteine Heparin-induced thrombocytopenia Other congenital or acquired thrombophilia Stroke (< 1 month) Elective arthroplasty Hip, pelvis, or leg fracture Acute spinal cord injury (< 1 month) Prophylaxis Regimen Total Risk Factor Score Risk Level Prophylaxis Regimen 0-1 Low Early ambulation 2 Moderate Order ONE of the following: *Sequential Compression Device (SCD) *Heparin 5000 units SQ BID 3-4 Higher Order ONE of the following medications: *Heparin 5000 units SQ TID *Enoxaparin/Lovenox 40 mg SQ daily (WT < 150 kg, CrCl > 30 mL/min) *Enoxaparin/Lovenox 30 mg SQ daily (WT < 150 kg, CrCl > 10-29 mL/min) *Enoxaparin/Lovenox 30 mg SQ BID (WT < 150 kg, CrCl > 30 mL/min) AND/OR *Sequential Compression Device (SCD) 5 or more Highest Order ONE of the following medications: *Heparin 5000 units SQ TID (Preferred with Epidurals) *Enoxaparin/Lovenox 40 mg SQ daily (WT < 150 kg, CrCl > 30 mL/min) *Enoxaparin/Lovenox 30 mg SQ daily (WT < 150 kg, CrCl > 10-29 mL/min) *Enoxaparin/Lovenox 30 mg SQ BID (WT < 150 kg, CrCl > 30 mL/min) AND *Sequential Compression Device (SCD) Assessment and Plan Assessment and Plan Shortness of breath and dyspnea with left sided flank back pain looks like nodular pneumonia on the left side We'll treat with Levaquin IV Solu-Medrol IV Mucinex twice a day Incentive spirometry Duo nebs Tobacco abuse recommend smoking cessation will give NicoDerm patch. Alcohol abuse with extensive tear and other liquors daily no active signs of withdrawal will place on CIWA protocol with multivitamin thiamine and folic acid Recommend incentive spirometry Leukocytosis will monitor and get a.m. labs We'll send for sputum as well as urine L urinalysis and urine antigens for pneumonia strep and Legionella DVT prophylaxis with Lovenox and SCDs and JAIDEN hose GI prophylaxis with Pepcid Code Status FULL CODE Discussed Condition With ER AND PT AND FAMILY Jasper Estrella DO Oct 12, 2017 09:04
[2017-10-12] MEDS: SODIUM CHLOR 0.9% 1000 ML INJ 1,000 ML IV SCH ×2 (09:09→19:00)
[2017-10-12] MEDS: guaiFENesin E.R. 600 MG TAB PO SCH ×2 (09:23→23:21)
[2017-10-12] MEDS: MULTIVITAMINS/MINERALS THERAPEUTIC TAB PO SCH (09:23)
[2017-10-12] MEDS: FOLIC ACID 1 MG TAB PO SCH (09:24)
[2017-10-12] MEDS: THIAMINE HCL 100 MG TAB PO SCH (09:25)
[2017-10-12] MEDS: methylPREDNISolone SOD SUCC 40 MG/1 ML VIAL IV PUSH SCH ×2 (10:00→23:16)
[2017-10-12] MEDS: RESP: ALBUTEROL 2.5 MG/IPRATROPIUM 0.5 MG NEB (SCH) INH ×3 (10:06→20:47)
[2017-10-12 10:25] VITALS: O2SAT 97
[2017-10-12 11:18] VITALS: BP 143/75; PULSE 93; RESP 18; TEMP 98.8; O2SAT 98
[2017-10-12 12:47] LABS: TROPONIN I LESS THAN 0.02 NG/ML (0.02-0.05)
[2017-10-12] MEDS: oxyCODONE/ACETAMINOPHEN 10 MG/325 MG TAB PO PRN ×3 (12:53→23:27)
[2017-10-12] MEDS: ENOXAPARIN SODIUM 40 MG/0.4 ML SYRINGE SQ SCH (12:55)
[2017-10-12] MEDS: LEVOFLOXACIN 500 MG PREMIX INJ 100 ML IV SCH (14:33)
[2017-10-12 16:34] LABS: MAGNESIUM 2.1 MG/DL (1.5-2.5)
[2017-10-12 16:35] LABS: PHOSPHORUS 2.1 MG/DL (2.5-4.9)
[2017-10-12 16:40] LABS: TROPONIN I LESS THAN 0.02 NG/ML (0.02-0.05)
[2017-10-12 17:25] VITALS: BP 113/68; PULSE 86; RESP 20; TEMP 99.4; O2SAT 96
--- NOTE | 2017-10-12 18:23 | ECHRPT ---
Indication: CHEST PAIN CONCLUSIONS The left ventricular systolic function is normal with an estimated ejection fraction in the range of 55-60%. There is trace tricuspid valve regurgitation. BP: 146 / 69 HR: 71 Rhythm: MEASUREMENTS (Male / Female) Normal Values Technical Quality:Good 2D ECHO LV Diastolic Diameter PLAX 5.3 cm 4.2 - 5.9 / 3.9 - 5.3 cm LV Systolic Diameter PLAX 3.7 cm IVS Diastolic Thickness 1.1 cm 0.6 - 1.0 / 0.6 - 0.9 cm LVPW Diastolic Thickness 0.7 cm 0.6 - 1.0 / 0.6 - 0.9 cm LV Relative Wall Thickness 0.3 RV Internal Dim ED PLAX 1.8 cm LA Systolic Diameter LX 3.6 cm 3.0 - 4.0 / 2.7 - 3.8 cm M-MODE Aortic Root Diameter MM 3.7 cm AV Cusp Separation MM 2.2 cm DOPPLER Mitral E Point Velocity 100.0 cm/s Mitral A Point Velocity 70.1 cm/s Mitral E to A Ratio 1.4 TR Peak Velocity 232.0 cm/s TR Peak Gradient 21.5 mmHg FINDINGS LEFT VENTRICLE Normal left ventricular size. Wall thickness is normal. The left ventricular systolic function is normal with an estimated ejection fraction in the range of 55-60%. RIGHT VENTRICLE Normal right ventricular size and systolic function. LEFT ATRIUM The left atrial size is normal. RIGHT ATRIUM The right atrial size is normal. ATRIAL SEPTUM Normal atrial septal thickness without atrial level shunting by limited color doppler interrogation. AORTA The aortic root and proximal ascending aorta are normal in size on limited imaging. MITRAL VALVE Structurally normal mitral valve. No mitral valve stenosis or regurgitation. AORTIC VALVE Trileaflet aortic valve. No aortic valve stenosis or regurgitation. TRICUSPID VALVE Structurally normal tricuspid valve. There is trace tricuspid valve regurgitation. The estimated pulmonary arterial pressure is 27 mmHg. PULMONARY VALVE The pulmonary valve is not well visualized. VESSELS The inferior vena cava is normal in size. PERICARDIUM No pericardial effusion. Fausto Albrecht DO (Electronically Signed) Final Date:12 October 2017 18:22
[2017-10-12 20:23] VITALS: BP 128/60; PULSE 85; RESP 18; TEMP 98; O2SAT 98
[2017-10-12] MEDS: FAMOTIDINE 20 MG TAB PO SCH (23:16)
[2017-10-13 00:45] VITALS: BP 167/85; PULSE 68; RESP 18; TEMP 98; O2SAT 97
[2017-10-13] MEDS: RESP: ALBUTEROL 2.5 MG/IPRATROPIUM 0.5 MG NEB (SCH) INH ×2 (03:07→07:33)
[2017-10-13 04:00] VITALS: BP 128/67; PULSE 68; RESP 18; TEMP 98; O2SAT 97
[2017-10-13 07:35] VITALS: O2SAT 95
[2017-10-13] MEDS: SODIUM CHLOR 0.9% 1000 ML INJ 1,000 ML IV SCH (07:35)
[2017-10-13 08:15] VITALS: BP 137/76; PULSE 97; RESP 18; TEMP 98; O2SAT 98
[2017-10-13 08:23] LABS: AUTOMATED NEUTROPHIL # 14.9 TH/MM3 (1.8-7.7); BASOPHIL % 0.1 % (0.0-2.0); HEMATOCRIT 41.8 % (39.0-51.0); HEMOGLOBIN 14.3 GM/DL (13.0-17.0); LYMPH % 5.8 % (9.0-44.0); LYMPHOCYTE # 0.9 TH/MM3 (1.0-4.8); MEAN CELL VOLUME 85.7 FL (80.0-100.0); MEAN CORPUSCULAR HEMOGLOBIN 29.4 PG (27.0-34.0); MEAN CORPUSCULAR HGB CONC 34.3 % (32.0-36.0); MEAN PLATELET VOLUME 8.6 FL (7.0-11.0); MONO % 2.3 % (0.0-8.0); MONOCYTE # 0.4 TH/MM3 (0-0.9); NEUT % 91.8 % (16.0-70.0); PLATELET COUNT 359 TH/MM3 (150-450); RED BLOOD COUNT 4.88 MIL/MM3 (4.50-5.90); WHITE BLOOD COUNT 16.3 TH/MM3 (4.0-11.0)
[2017-10-13 08:42] LABS: ALBUMIN 3.6 GM/DL (3.4-5.0); AST (GOT) 13 U/L (15-37); BICARBONATE 24.7 MEQ/L (21.0-32.0); BLOOD UREA NITROGEN 10 MG/DL (7-18); CALCIUM 9.5 MG/DL (8.5-10.1); CHLORIDE 103 MEQ/L (98-107); CREATININE 0.89 MG/DL (0.60-1.30); GLOMERULAR FILTRATION RATE 118 ML/MIN (>89); GLUCOSE,RANDOM 126 MG/DL (74-106); MAGNESIUM 2.3 MG/DL (1.5-2.5); SODIUM (NA) 136 MEQ/L (136-145)
[2017-10-13 08:52] LABS: ALKALINE PHOSPHATASE 58 U/L (45-117); ALT (GPT) 18 U/L (12-78); FREE T4 1.07 NG/DL (0.76-1.46); PHOSPHORUS 2.9 MG/DL (2.5-4.9); TOTAL BILIRUBIN ADULT 0.4 MG/DL (0.2-1.0); TOTAL PROTEIN 8.7 GM/DL (6.4-8.2)
[2017-10-13] MEDS: SODIUM CHLORIDE 0.9% FLUSH 10 ML FLUSH IV FLUSH SCH (09:00)
[2017-10-13] MEDS: REMOVE OLD PATCH T-DERMAL SCH (09:00)
[2017-10-13] MEDS: ENOXAPARIN SODIUM 40 MG/0.4 ML SYRINGE SQ SCH (10:15)
[2017-10-13] MEDS: methylPREDNISolone SOD SUCC 40 MG/1 ML VIAL IV PUSH SCH (10:15)
--- NOTE | 2017-10-13 10:15 | HHI.PR ---
Subjective Remarks Patient is a 36-year-old male. He was seen yesterday in the emergency department with sudden onset of left-sided chest pain and then had some shortness of breath with some stabbing back pain. Had a CAT scan which was done of his chest abdomen and abdomen showed 2.5 cm nodules versus a questionable nodular infiltrate in left lung. He had been discharged on azithromycin and tramadol. Patient re-presented to the hospital with worsening pain. AND worsening shortness of breath AND HE is unable to tolerate the sharp stabbing pain in the left lower back area WITH flank pain was 10 out of 10 had some shortness of breath. And some sweats. Denies any recent travel. Denies any risk factors for tuberculosis. Started using a vaporizer pen along with his cigarette use. Also smokes marijuana patient also drinks daily 2-10 patient is improved no fevers no chills Can be discharged to home today Will need follow-up and 2-3 months to make sure this nodular area has improved or if it continues may need further workup Objective Vitals Vital Signs Date Time Temp Pulse Resp B/P (MAP) Pulse Ox O2 Delivery O2 Flow Rate FiO2 10/13/17 08:15 98.0 97 18 137/76 (96) 98 10/13/17 07:35 95 21 10/13/17 04:00 98.0 68 18 128/67 (87) 97 10/13/17 00:45 98.0 68 18 167/85 (112) 97 10/12/17 20:23 98.0 85 18 128/60 (82) 98 10/12/17 17:25 99.4 86 20 113/68 (83) 96 10/12/17 11:18 98.8 93 18 143/75 (97) 98 10/12/17 10:34 10/12/17 10:25 97 21 I/O 10/12/17 10/12/17 10/12/17 10/13/17 10/13/17 10/13/17 07:00 15:00 23:00 07:00 15:00 23:00 Output Total 650 ml Balance -650 ml Output Urine Total 650 ml # Voids 1 2 Result Diagram: 10/13/17 0615 10/13/17 0615 Other Results Laboratory Tests Test 10/12/17 06:30 10/12/17 11:35 10/12/17 16:00 10/13/17 06:15 White Blood Count 17.4 TH/MM3 16.3 TH/MM3 Red Blood Count 4.62 MIL/MM3 4.88 MIL/MM3 Hemoglobin 13.5 GM/DL 14.3 GM/DL Hematocrit 39.7 % 41.8 % Mean Corpuscular Volume 85.9 FL 85.7 FL Mean Corpuscular Hemoglobin 29.2 PG 29.4 PG Mean Corpuscular Hemoglobin Concent 34.0 % 34.3 % Red Cell Distribution Width 13.1 % 13.0 % Platelet Count 359 TH/MM3 359 TH/MM3 Mean Platelet Volume 8.9 FL 8.6 FL Neutrophils (%) (Auto) 64.4 % 91.8 % Lymphocytes (%) (Auto) 25.0 % 5.8 % Monocytes (%) (Auto) 8.2 % 2.3 % Eosinophils (%) (Auto) 2.2 % 0.0 % Basophils (%) (Auto) 0.2 % 0.1 % Neutrophils # (Auto) 11.2 TH/MM3 14.9 TH/MM3 Lymphocytes # (Auto) 4.3 TH/MM3 0.9 TH/MM3 Monocytes # (Auto) 1.4 TH/MM3 0.4 TH/MM3 Eosinophils # (Auto) 0.4 TH/MM3 0.0 TH/MM3 Basophils # (Auto) 0.0 TH/MM3 0.0 TH/MM3 CBC Comment DIFF FINAL DIFF FINAL Differential Comment Blood Urea Nitrogen 13 MG/DL 10 MG/DL Creatinine 1.05 MG/DL 0.89 MG/DL Random Glucose 91 MG/DL 126 MG/DL Total Protein 8.3 GM/DL 8.7 GM/DL Albumin 3.5 GM/DL 3.6 GM/DL Calcium Level 8.8 MG/DL 9.5 MG/DL Alkaline Phosphatase 58 U/L 58 U/L Aspartate Amino Transf (AST/SGOT) 19 U/L 13 U/L Alanine Aminotransferase (ALT/SGPT) 16 U/L 18 U/L Total Bilirubin 0.4 MG/DL 0.4 MG/DL Sodium Level 139 MEQ/L 136 MEQ/L Potassium Level 4.1 MEQ/L 4.2 MEQ/L Chloride Level 102 MEQ/L 103 MEQ/L Carbon Dioxide Level 30.2 MEQ/L 24.7 MEQ/L Anion Gap 7 MEQ/L 8 MEQ/L Estimat Glomerular Filtration Rate 97 ML/MIN 118 ML/MIN Total Creatine Kinase 65 U/L 80 U/L Troponin I LESS THAN 0.02 NG/ML LESS THAN 0.02 NG/ML Phosphorus Level 2.1 MG/DL 2.9 MG/DL Magnesium Level 2.1 MG/DL 2.3 MG/DL Free Thyroxine 1.07 NG/DL Thyroid Stimulating Hormone 3rd Gen 0.073 uIU/ML Imaging SAMUEL SINGH Signed EXAM DATE/TIME: 10/11/2017 12:06 [facility] COMPARISON: CHEST SINGLE AP, October 11, 2017, 12:29. INDICATIONS : Patient awoke with left flank pain ORAL CONTRAST: No oral contrast ingested. RADIATION DOSE: 10.30 CTDIvol (mGy) MEDICAL HISTORY : None SURGICAL HISTORY : None. ENCOUNTER: Initial ACUITY: 1 day PAIN SCALE: 10/10 LOCATION: Left flank TECHNIQUE: Renal colic protocol. Volumetric scanning of the abdomen and pelvis was performed. Using automated exposure control and adjustment of the mA and/or kV according to patient size, radiation dose was kept as low as reasonably achievable to obtain optimal diagnostic quality images. DICOM format image data is available electronically for review and comparison. FINDINGS: Right side: No calcified renal stones. No hydronephrosis. No calcifications along the course of the right ureter. Left side: No calcified renal stones. No hydronephrosis. No calcifications along the course of the left ureter. Bladder: Smooth margins. No calcifications in the lumen. Other: No calcified gallstones. Abnormal appearance to the left lower lobe with 2 mass like opacities in the posterior and lateral costophrenic angle measuring 2.3 cm and 2.7 cm respectively. No evidence pleural effusion. Osseous structures are grossly intact. CONCLUSION: 1. Negative renal colic CT. 2. There are 2 masslike densities in the lower lateral left lung measuring up to 2.7 cm. Since these opacities are adjacent to the left hemidiaphragm, these could be causing left flank pain. Junior King MD on October 11, 2017 SAMUEL SINGH Signed EXAM DATE/TIME: 10/11/2017 13:29 [facility] COMPARISON: No previous studies available for comparison. INDICATIONS : Left lateral chest pain, back pain IV CONTRAST: 60 cc Omnipaque 350 (iohexol) IV RADIATION DOSE: 15.15 CTDIvol (mGy) MEDICAL HISTORY : None SURGICAL HISTORY : None. ENCOUNTER: Initial ACUITY: 1 day PAIN SCALE: 9/10 LOCATION: chest TECHNIQUE: Volumetric scanning of the chest was performed using a pulmonary embolism protocol MIP images were reconstructed. Using automated exposure control and adjustment of the mA and/or kV according to patient size, radiation dose was kept as low as reasonably achievable to obtain optimal diagnostic quality images. DICOM format image data is available electronically for review and comparison. Follow-up recommendations for detected pulmonary nodules are based at a minimum on nodule size and patient risk factors according to Fleischner Society Guidelines. FINDINGS: PULMONARY ARTERIES: No filling defects are seen in the pulmonary arteries through the segmental level. LUNGS: Nodular densities are noted within the left lower lobe measuring 2.3 cm, 2.5 cm and 0.9 cm. There is also a nodular density within the right lower lobe measuring 0.9 cm. Differential diagnosis includes nodular infiltrates or true pulmonary nodules. If these do represent true pulmonary nodules, metastatic disease should be considered. PLEURAE: There is no pleural thickening or pleural effusion. MEDIASTINUM: There is good visualization of the great vessels of the middle mediastinum. No evidence of mediastinal or hilar adenopathy/mass. Coronary artery calcifications. MUSCULOSKELETAL: Mild scoliosis of the thoracic spine is noted. MISCELLANEOUS: The visualized upper abdominal organs demonstrate no acute abnormality. CONCLUSION: 1. Multiple noncalcified pulmonary nodular densities bilaterally measuring 2.5, 2.3 and 0.9 cm within the left lower lobe and 0.9 cm within the right lower lobe. Differential includes nodular infiltrates or true pulmonary nodules. PET/ CT scan may be helpful for further evaluation if these do represent true pulmonary nodules. 2. No evidence of pulmonary embolism. 3. Coronary artery calcifications. Jean-Pierre Jordan MD on October 11, 2017 SAMUEL SINGH Signed EXAM DATE/TIME: 10/11/2017 12:29 [facility] COMPARISON: CHEST SINGLE AP, July 11, 2016, 10:54. INDICATIONS : Chest pain. MEDICAL HISTORY : None. SURGICAL HISTORY : None. ENCOUNTER: Initial ACUITY: 1 day PAIN SCORE: 6/10 LOCATION: Bilateral chest FINDINGS: A single view of the chest demonstrates the lungs to be symmetrically aerated without evidence of mass, infiltrate or effusion. The cardiomediastinal contours are unremarkable. Osseous structures are intact with a levoscoliosis of the dorsal spine which may be positional. CONCLUSION: No acute cardiopulmonary process. Objective Remarks GENERAL: This is a well-nourished, well-developed patient, in no apparent distress. SKIN: No rashes, ecchymoses or lesions. Cool and dry. HEAD: Atraumatic. Normocephalic. No temporal or scalp tenderness. EYES: Pupils equal round and reactive. Extraocular motions intact. No scleral icterus. No injection or drainage. ENT: Nose without bleeding, purulent drainage or septal hematoma. Throat without erythema, tonsillar hypertrophy or exudate. Uvula midline. Airway patent. NECK: Trachea midline. No JVD or lymphadenopathy. Supple, nontender, no meningeal signs. CARDIOVASCULAR: Regular rate and rhythm without murmurs, gallops, or rubs. S1 and S2 no S3 or S4 RESPIRATORY: Coarse breath sounds bilaterally. Breath sounds equal bilaterally. Less rhonchi GASTROINTESTINAL: Abdomen soft, non-tender, nondistended. No hepato-splenomegaly , or palpable masses. No guarding. MUSCULOSKELETAL: Extremities without clubbing, cyanosis, or edema. No joint tenderness, effusion, or edema noted. No calf tenderness. Negative Homans sign bilaterally. NEUROLOGICAL: Awake and alert. Cranial nerves II through XII intact. Motor and sensory grossly within normal limits. Five out of 5 muscle strength in all muscle groups. Normal speech. Insight and judgment is good Mood and behavior is Appropriate Procedures None Medications and IVs Current Medications Ondansetron HCl (Zofran Inj) 4 mg ONCE ONCE IV PUSH Last administered on at 05:13; Start 10/12/17 at 05:15; Stop 10/12/17 at 05:16; Status DC Famotidine (Pepcid Inj) 20 mg ONCE IV PUSH Last administered on 10/12/17at 05:14 ; Start 10/12/17 at 05:15; Stop 10/12/17 at 09:25; Status DC Ketorolac Tromethamine (Toradol Inj) 30 mg ONCE ONCE IV PUSH Last administered on 10/12/17at 05:13; Start 10/12/17 at 05:15; Stop 10/12/17 at 05:16; Status DC Albuterol/ Ipratropium (Duoneb Neb) 1 ampule ONCE ONCE NEB Last administered on 10/12/17at 06:36; Start 10/12/17 at 06:45; Stop 10/12/17 at 06:46; Status DC Sodium Chloride 1,000 ml @ 100 mls/hr Q10H IV Last administered on 10/13/17at 07:35; Start 10/12/17 at 09:00 Sodium Chloride (NS Flush) 2 ml UNSCH PRN IV FLUSH FLUSH AFTER USING IV ACCESS ; Start 10/12/17 at 08:45; Stop 10/12/17 at 08:57; Status DC Sodium Chloride (NS Flush) 2 ml BID IV FLUSH ; Start 10/12/17 at 09:00; Stop 10/12 at 09:00; Status DC Acetaminophen (Tylenol) 650 mg Q4H PRN PO TEMP > 100.4; Start 10/12/17 at 08:45 Ondansetron HCl (Zofran Inj) 4 mg Q6H PRN IVP NAUSEA OR VOMITING; Start at 08:45 Metoclopramide HCl (Reglan Inj) 5 mg Q6H PRN IV PUSH NAUSEA OR VOMITING; Start 10/12/17 at 08:45 Zolpidem Tartrate (Ambien) 5 mg HS PRN PO INSOMNIA; Start 10/12/17 at 08:45 Enoxaparin Sodium (Lovenox Inj) 40 mg Q24H SQ Last administered on 10/12/17at 12: 55; Start 10/12/17 at 10:00 Acetaminophen (Tylenol) 650 mg Q6H PRN PO PAIN SCALE 1 TO 2; Start 10/12/17 at 08:45 Oxycodone/ Acetaminophen (Percocet 5-325 Mg) 1 tab Q6H PRN PO PAIN SCALE 3 TO 5; Start 10/12/17 at 08:45 Oxycodone/ Acetaminophen (Percocet 10-325 Mg) 1 tab Q6H PRN PO PAIN SCALE 6 TO 10 Last administered on 10/12/17at 19:05; Start 10/12/17 at 08:45 Morphine Sulfate (Morphine Inj) 2 mg Q3H PRN IV PUSH Pain 3-5; if unable to take PO; Start 10/12/17 at 08:45 Morphine Sulfate (Morphine Inj) 4 mg Q3H PRN IV PUSH Pain 6-10;if unable to take PO Last administered on 10/12/17at 23:05; Start 10/12/17 at 08:45 Morphine Sulfate (Morphine Inj) 4 mg Q3H PRN IV PUSH BREAKTHROUGH PAIN; Start 10/12/17 at 08:45 Naloxone HCl (Narcan Inj) 0.4 mg UNSCH PRN IV PUSH SEE LABEL COMMENTS; Start at 08:45 Senna/Docusate Sodium (Sophie-Colace) 1 tab BID PO ; Start 10/12/17 at 09:00 Magnesium Hydroxide (Milk Of Magnesia Liq) 30 ml Q12H PRN PO Mild constipation ; Start 10/12/17 at 08:45 Sennosides (Senokot) 17.2 mg Q12H PRN PO Moderate constipation; Start 10/12/17 at 08:45 Bisacodyl (Dulcolax Supp) 10 mg DAILY PRN RECTAL SEVERE CONSITIPATION; Start at 08:45 Lactulose (Lactulose Liq) 30 ml DAILY PRN PO SEVERE CONSITIPATION; Start at 08:45 Flumazenil (Romazicon Inj) 0.2 mg Q1M PRN IV PUSH SEE LABEL COMMENTS; Start 10/12/17 at 08:45; Stop 10/12/17 at 08:57; Status DC Lorazepam (Ativan) 1 mg Q4H PRN PO CIWA 8 - 10; Start 10/12/17 at 08:45; Stop at 08:57; Status DC Lorazepam (Ativan Inj) 1 mg Q4H PRN IV PUSH CIWA 8 - 10; Start 10/12/17 at 08:45 ; Stop 10/12/17 at 08:57; Status DC Lorazepam (Ativan) 2 mg Q2H PRN PO CIWA 11-14; Start 10/12/17 at 08:45; Stop 10/12/17 at 08:57; Status DC Lorazepam (Ativan Inj) 2 mg Q2H PRN IV PUSH CIWA 11-14; Start 10/12/17 at 08:45 ; Stop 10/12/17 at 08:57; Status DC Lorazepam (Ativan Inj) 2 mg Q1H PRN IV PUSH CIWA 15-20; Start 10/12/17 at 08:45 ; Stop 10/12/17 at 08:57; Status DC Lorazepam (Ativan Inj) 2 mg Q15M PRN IV PUSH CIWA > 20; Start 10/12/17 at 08:45 ; Stop 10/12/17 at 08:57; Status DC Sodium Chloride (NS Flush) 2 ml UNSCH PRN IV FLUSH FLUSH AFTER USING IV ACCESS ; Start 10/12/17 at 08:45; Stop 10/12/17 at 08:57; Status DC Sodium Chloride (NS Flush) 2 ml BID IV FLUSH ; Start 10/12/17 at 09:00; Stop 10/12 at 09:00; Status DC Folic Acid (Folate) 1 mg DAILY PO Last administered on 10/12/17at 09:24; Start at 09:00; Stop 10/17/17 at 08:59 Thiamine HCl (Vitamin B1) 100 mg DAILY PO Last administered on 10/12/17at 09:25; Start 10/12/17 at 09:00 Multivitamins/ Minerals Therapeutic (Theragran M Tab) 1 tab DAILY PO Last administered on 10/12/17at 09:23; Start 10/12/17 at 09:00; Stop 10/17/17 at 08:59 Famotidine (Pepcid) 20 mg BID PO Last administered on 10/12/17at 23:16; Start 10/12/17 at 21:00 Clonidine (Catapres) 0.1 mg Q6H PRN PO SEE LABEL COMMENTS; Start 10/12/17 at 08: 45 Flumazenil (Romazicon Inj) 0.2 mg Q1M PRN IV PUSH SEE LABEL COMMENTS; Start 10/12/17 at 08:45 Lorazepam (Ativan) 1 mg Q4H PRN PO CIWA 8 - 10; Start 10/12/17 at 08:45 Lorazepam (Ativan Inj) 1 mg Q4H PRN IV PUSH CIWA 8 - 10; Start 10/12/17 at 08:45 Lorazepam (Ativan) 2 mg Q2H PRN PO CIWA 11-14; Start 10/12/17 at 08:45 Lorazepam (Ativan Inj) 2 mg Q2H PRN IV PUSH CIWA 11-14; Start 10/12/17 at 08:45 Lorazepam (Ativan Inj) 2 mg Q1H PRN IV PUSH CIWA 15-20; Start 10/12/17 at 08:45 Lorazepam (Ativan Inj) 2 mg Q15M PRN IV PUSH CIWA > 20; Start 10/12/17 at 08:45 Sodium Chloride (NS Flush) 2 ml UNSCH PRN IV FLUSH FLUSH AFTER USING IV ACCESS ; Start 10/12/17 at 08:45 Sodium Chloride (NS Flush) 2 ml BID IV FLUSH ; Start 10/12/17 at 09:00 Levofloxacin/ Dextrose 100 ml @ 100 mls/hr Q24H IV Last administered on at 14:33; Start 10/12/17 at 10:00 Albuterol/ Ipratropium (Duoneb Neb) 1 ampule Q6HR NEB INH Last administered on 10/13/17at 07:33; Start 10/12/17 at 10:00 Albuterol/ Ipratropium (Duoneb Neb) 1 ampule Q4HR NEB PRN INH SHORTNESS OF BREATH; Start 10/12/17 at 08:45 Methylprednisolone Sodium Succinate (SoluMEDROL INJ) 40 mg Q12H IV PUSH Last administered on 10/12/17at 23:16; Start 10/12/17 at 10:00 Guaifenesin (Mucinex Er) 600 mg BID PO Last administered on 10/12/17at 23:21; Start 10/12/17 at 09:00 Nicotine (Habitrol 14 Mg Patch.24 Hr) 1 patch DAILY T-DERMAL ; Start 10/12/17 at 09:00 Miscellaneous Information 1 DAILY T-DERMAL ; Start 10/12/17 at 09:00 Urinary Catheter: No A/P Assessment and Plan Shortness of breath and dyspnea with left sided flank back pain looks like nodular pneumonia on the left side We'll treat with Levaquin IV Solu-Medrol IV Mucinex twice a day Incentive spirometry Duo nebs Tobacco abuse recommend smoking cessation will give NicoDerm patch. Alcohol abuse with extensive tear and other liquors daily no active signs of withdrawal will place on CIWA protocol with multivitamin thiamine and folic acid Recommend incentive spirometry Leukocytosis will monitor and get a.m. labs We'll send for sputum as well as urine L urinalysis and urine antigens for pneumonia strep and Legionella DVT prophylaxis with Lovenox and SCDs and JAIDEN hose GI prophylaxis with Pepcid SWITCH TO PO STEROIDS PO ANTIBIOTICS PO PAIN MEDS NEBULIZER WITH TREATMENTS SMOKING CESSATION RECOMMENDED STOP THC AND VAPE Discharge Planning DC HOME FOLLOW UP WITH PCP IN 2 TO 3 MONTHS Jasper Estrella DO Oct 13, 2017 10:15
[2017-10-13] MEDS: THIAMINE HCL 100 MG TAB PO SCH (10:16)
[2017-10-13] MEDS: oxyCODONE/ACETAMINOPHEN 10 MG/325 MG TAB PO PRN (10:16)
[2017-10-13] MEDS: guaiFENesin E.R. 600 MG TAB PO SCH (10:16)
[2017-10-13] MEDS: DOCUSATE SODIUM 50 MG/SENNA 8.6 MG TAB PO SCH (10:16)
[2017-10-13] MEDS: MULTIVITAMINS/MINERALS THERAPEUTIC TAB PO SCH (10:17)
[2017-10-13] MEDS: LEVOFLOXACIN 500 MG PREMIX INJ 100 ML IV SCH (10:17)
[2017-10-13] MEDS: FOLIC ACID 1 MG TAB PO SCH (10:17)
[2017-10-13] MEDS: FAMOTIDINE 20 MG TAB PO SCH (10:17)
[2017-10-13] MEDS ORDERED: guaiFENesin ER PO (10:20)
[2017-10-13] MEDS ORDERED: THERM PO (10:20)
[2017-10-13] MEDS ORDERED: FAMO20TA2 PO (10:20)
[2017-10-13] MEDS ORDERED: THIA100 PO (10:20)
[2017-10-13] MEDS ORDERED: MEDR4PAK PO (10:20)
[2017-10-13] MEDS ORDERED: LEVA500T33 PO (10:20)
[2017-10-13] MEDS ORDERED: OXYC1TAB63 PO (10:20)
[2017-10-13] MEDS ORDERED: NICO14DI23 T-DERMAL (10:20)
[2017-10-13] MEDS ORDERED: FOLI1TAB6 PO (10:20)
[2017-10-13] MEDS ORDERED: VENTAER INH (10:20)
--- NOTE | 2017-10-13 10:26 | HHI.DS ---
Discharge Summary Admission Date Oct 12, 2017 at 07:59 Discharge Date: Oct 13, 2017 Admitting Diagnosis NODULAR INFILTRATES, LEUKOCYTOSIS (1) Pneumonia ICD Code: J18.9 - Pneumonia, unspecified organism Diagnosis: Principal (2) Tobacco abuse ICD Code: Z72.0 - Tobacco use Diagnosis: Secondary (3) Alcohol abuse ICD Code: F10.10 - Alcohol abuse, uncomplicated Diagnosis: Secondary (4) Muscle strain ICD Code: T14.8 - Other injury of unspecified body region Diagnosis: Secondary Status: Acute (5) Muscle spasm ICD Code: M62.838 - Other muscle spasm Diagnosis: Secondary Status: Acute Procedures None Brief History - From Admission Patient is a 36-year-old male. He was seen yesterday in the emergency department with sudden onset of left-sided chest pain and then had some shortness of breath with some stabbing back pain. Had a CAT scan which was done of his chest abdomen and abdomen showed 2.5 cm nodules versus a questionable nodular infiltrate in left lung. He had been discharged on azithromycin and tramadol. Patient re-presented to the hospital with worsening pain. AND worsening shortness of breath AND HE is unable to tolerate the sharp stabbing pain in the left lower back area WITH flank pain was 10 out of 10 had some shortness of breath. And some sweats. Denies any recent travel. Denies any risk factors for tuberculosis. Started using a vaporizer pen along with his cigarette use. Also smokes marijuana patient also drinks daily CBC/BMP: 10/13/17 0615 10/13/17 0615 Significant Findings Laboratory Tests Test 10/12/17 06:30 10/12/17 11:35 10/12/17 16:00 10/13/17 06:15 White Blood Count 17.4 TH/MM3 (4.0-11.0) 16.3 TH/MM3 (4.0-11.0) Monocytes (%) (Auto) 8.2 % (0.0-8.0) Neutrophils # (Auto) 11.2 TH/MM3 (1.8-7.7) 14.9 TH/MM3 (1.8-7.7) Monocytes # (Auto) 1.4 TH/MM3 (0-0.9) Total Protein 8.3 GM/DL (6.4-8.2) 8.7 GM/DL (6.4-8.2) Troponin I LESS THAN 0.02 NG/ML LESS THAN 0.02 NG/ML Phosphorus Level 2.1 MG/DL (2.5-4.9) Neutrophils (%) (Auto) 91.8 % (16.0-70.0) Lymphocytes (%) (Auto) 5.8 % (9.0-44.0) Lymphocytes # (Auto) 0.9 TH/MM3 (1.0-4.8) Random Glucose 126 MG/DL (74-106) Aspartate Amino Transf (AST/SGOT) 13 U/L (15-37) Thyroid Stimulating Hormone 3rd Gen 0.073 uIU/ML (0.358-3.740) Imaging Signed EXAM DATE/TIME: 10/11/2017 12:06 [facility] COMPARISON: CHEST SINGLE AP, October 11, 2017, 12:29. INDICATIONS : Patient awoke with left flank pain ORAL CONTRAST: No oral contrast ingested. RADIATION DOSE: 10.30 CTDIvol (mGy) MEDICAL HISTORY : None SURGICAL HISTORY : None. ENCOUNTER: Initial ACUITY: 1 day PAIN SCALE: 10/10 LOCATION: Left flank TECHNIQUE: Renal colic protocol. Volumetric scanning of the abdomen and pelvis was performed. Using automated exposure control and adjustment of the mA and/or kV according to patient size, radiation dose was kept as low as reasonably achievable to obtain optimal diagnostic quality images. DICOM format image data is available electronically for review and comparison. FINDINGS: Right side: No calcified renal stones. No hydronephrosis. No calcifications along the course of the right ureter. Left side: No calcified renal stones. No hydronephrosis. No calcifications along the course of the left ureter. Bladder: Smooth margins. No calcifications in the lumen. Other: No calcified gallstones. Abnormal appearance to the left lower lobe with 2 mass like opacities in the posterior and lateral costophrenic angle measuring 2.3 cm and 2.7 cm respectively. No evidence pleural effusion. Osseous structures are grossly intact. CONCLUSION: 1. Negative renal colic CT. 2. There are 2 masslike densities in the lower lateral left lung measuring up to 2.7 cm. Since these opacities are adjacent to the left hemidiaphragm, these could be causing left flank pain. Junior King MD on October 11, 2017 SAMUEL SINGH Signed EXAM DATE/TIME: 10/11/2017 13:29 [facility] COMPARISON: No previous studies available for comparison. INDICATIONS : Left lateral chest pain, back pain IV CONTRAST: 60 cc Omnipaque 350 (iohexol) IV RADIATION DOSE: 15.15 CTDIvol (mGy) MEDICAL HISTORY : None SURGICAL HISTORY : None. ENCOUNTER: Initial ACUITY: 1 day PAIN SCALE: 9/10 LOCATION: chest TECHNIQUE: Volumetric scanning of the chest was performed using a pulmonary embolism protocol MIP images were reconstructed. Using automated exposure control and adjustment of the mA and/or kV according to patient size, radiation dose was kept as low as reasonably achievable to obtain optimal diagnostic quality images. DICOM format image data is available electronically for review and comparison. Follow-up recommendations for detected pulmonary nodules are based at a minimum on nodule size and patient risk factors according to Fleischner Society Guidelines. FINDINGS: PULMONARY ARTERIES: No filling defects are seen in the pulmonary arteries through the segmental level. LUNGS: Nodular densities are noted within the left lower lobe measuring 2.3 cm, 2.5 cm and 0.9 cm. There is also a nodular density within the right lower lobe measuring 0.9 cm. Differential diagnosis includes nodular infiltrates or true pulmonary nodules. If these do represent true pulmonary nodules, metastatic disease should be considered. PLEURAE: There is no pleural thickening or pleural effusion. MEDIASTINUM: There is good visualization of the great vessels of the middle mediastinum. No evidence of mediastinal or hilar adenopathy/mass. Coronary artery calcifications. MUSCULOSKELETAL: Mild scoliosis of the thoracic spine is noted. MISCELLANEOUS: The visualized upper abdominal organs demonstrate no acute abnormality. CONCLUSION: 1. Multiple noncalcified pulmonary nodular densities bilaterally measuring 2.5, 2.3 and 0.9 cm within the left lower lobe and 0.9 cm within the right lower lobe. Differential includes nodular infiltrates or true pulmonary nodules. PET/ CT scan may be helpful for further evaluation if these do represent true pulmonary nodules. 2. No evidence of pulmonary embolism. 3. Coronary artery calcifications. Jean-Pierre Jordan MD on October 11, 2017 SAMUEL SINGH Signed EXAM DATE/TIME: 10/11/2017 12:29 [facility] COMPARISON: CHEST SINGLE AP, July 11, 2016, 10:54. INDICATIONS : Chest pain. MEDICAL HISTORY : None. SURGICAL HISTORY : None. ENCOUNTER: Initial ACUITY: 1 day PAIN SCORE: 6/10 LOCATION: Bilateral chest FINDINGS: A single view of the chest demonstrates the lungs to be symmetrically aerated without evidence of mass, infiltrate or effusion. The cardiomediastinal contours are unremarkable. Osseous structures are intact with a levoscoliosis of the dorsal spine which may be positional. CONCLUSION: No acute cardiopulmonary process. PE at Discharge GENERAL: This is a well-nourished, well-developed patient, in no apparent distress. SKIN: No rashes, ecchymoses or lesions. Cool and dry. HEAD: Atraumatic. Normocephalic. No temporal or scalp tenderness. EYES: Pupils equal round and reactive. Extraocular motions intact. No scleral icterus. No injection or drainage. ENT: Nose without bleeding, purulent drainage or septal hematoma. Throat without erythema, tonsillar hypertrophy or exudate. Uvula midline. Airway patent. NECK: Trachea midline. No JVD or lymphadenopathy. Supple, nontender, no meningeal signs. CARDIOVASCULAR: Regular rate and rhythm without murmurs, gallops, or rubs. S1 and S2 no S3 or S4 RESPIRATORY: Coarse breath sounds bilaterally. Breath sounds equal bilaterally. Less rhonchi GASTROINTESTINAL: Abdomen soft, non-tender, nondistended. No hepato-splenomegaly , or palpable masses. No guarding. MUSCULOSKELETAL: Extremities without clubbing, cyanosis, or edema. No joint tenderness, effusion, or edema noted. No calf tenderness. Negative Homans sign bilaterally. NEUROLOGICAL: Awake and alert. Cranial nerves II through XII intact. Motor and sensory grossly within normal limits. Five out of 5 muscle strength in all muscle groups. Normal speech. Insight and judgment is good Mood and behavior is Appropriate Hospital Course Patient is a 36-year-old male. He was seen yesterday in the emergency department with sudden onset of left-sided chest pain and then had some shortness of breath with some stabbing back pain. Had a CAT scan which was done of his chest abdomen and abdomen showed 2.5 cm nodules versus a questionable nodular infiltrate in left lung. He had been discharged on azithromycin and tramadol. Patient re-presented to the hospital with worsening pain. AND worsening shortness of breath AND HE is unable to tolerate the sharp stabbing pain in the left lower back area WITH flank pain was 10 out of 10 had some shortness of breath. And some sweats. Denies any recent travel. Denies any risk factors for tuberculosis. Started using a vaporizer pen along with his cigarette use. Also smokes marijuana patient also drinks daily 2-10 patient is improved no fevers no chills Can be discharged to home today Will need follow-up and 2-3 months to make sure this nodular area has improved or if it continues may need further workup Shortness of breath and dyspnea with left sided flank back pain looks like nodular pneumonia on the left side We'll treat with Levaquin switch to by mouth Solu-Medrol IV switch to oral Mucinex twice a day Incentive spirometry Duo nebs switched to albuterol inhaler Tobacco abuse recommend smoking cessation will give NicoDerm patch. Alcohol abuse with extensive tear and other liquors daily no active signs of withdrawal will place on CIWA protocol with multivitamin thiamine and folic acid switch to by mouth meds Recommend incentive spirometry Leukocytosis will monitor and get a.m. labs improved We'll send for sputum as well as urine L urinalysis and urine antigens for pneumonia strep and Legionella DVT prophylaxis with Lovenox and SCDs and JAIDEN hose GI prophylaxis with Pepcid SWITCH TO PO STEROIDS PO ANTIBIOTICS PO PAIN MEDS NEBULIZER WITH TREATMENTS SMOKING CESSATION RECOMMENDED STOP THC AND VAPE Pt Condition on Discharge: Good Discharge Disposition: Discharge Home Discharge Time: <= 30 minutes Discharge Instructions DIET: Follow Instructions for: Heart Healthy Diet Speech Therapy-Diet Recommends: Regular Activities you can perform: Regular-No Restrictions Other Activity Instructions: STOP SMOKING ANYTHING Follow up Referrals: PCP Follow-up - 2 Weeks New Medications: Albuterol 18 GM Inh (Ventolin Hfa 18 GM Inh) 90 Mcg/Act Aer 2 PUFF INH Q4H PRN for SHORTNESS OF BREATH, #1 INHALER 0 Refills Levofloxacin (Levaquin) 500 Mg Tablet 500 MG PO DAILY for Infection for 10 Days, #10 TAB 0 Refills Methylprednisolone Dosepak (Medrol Dosepak) 4 Mg Dspk 4 MG PO DIRECTED for Inflammation, #1 DSPK 0 Refills Per Pharmacist direction Famotidine (Famotidine) 20 Mg Tab 20 MG PO BID for Manage Heartburn, #60 TAB Folic Acid (Folic Acid) 1 Mg Tablet 1 MG PO DAILY for Nutritional Supplement, #30 TAB Multiple Vitamins W/ Minerals (Thera M Plus) 1 Tab 1 TAB PO DAILY for Nutritional Supplement, #30 TAB Nicotine (Eq Nicotine) 14 Mg/24 Hour Dis 1 PATCH T-DERMAL DAILY for TOBACCO, #30 PATCH Oxycodone HCl/Acetaminophen (Oxycodone-Acetaminophen 5-325) 5 Mg-325 Mg Tablet 1 TAB PO Q6H PRN for PAIN SCALE 6 TO 10, #30 TAB Thiamine HCl (Gnp Vitamin B-1) 100 Mg Tab 100 MG PO DAILY for Nutritional Supplement, #30 TAB [guaiFENesin ER] () 600 MG TABCR 600 MG PO BID for Cough, #60 TAB Discontinued Medications: Azithromycin (Azithromycin) 250 Mg Tab 250 MG PO DIRECTED for Infection, #6 TAB 0 Refills Take 2 tabs (500 mg) on day 1 then 1 tab daily x 4 days. Tramadol (Tramadol) 50 Mg Tab 50 MG PO Q6H PRN for PAIN, #10 TAB 0 Refills Jasper Estrella DO Oct 13, 2017 10:26
[2017-10-13 11:34] LABS: HEMOGLOBIN A1C 6.3 % (4.3-6.0)
[2017-10-13 11:58] VITALS: BP 124/69; PULSE 76; RESP 18; TEMP 98.1; O2SAT 97
[2017-10-13 12:15] VITALS: RESP 18
== END 2017-10-13 13:41 | disposition home or self-care (01) ==
LOC: NEPC 04:53 → NEDA 07:59 → NEPFCDU 10:32
PROVIDERS: ADMIT Hospitalist; ATTEND Hospitalist
DX: J18.9 Pneumonia, unspecified organism (principal); T14.8XXA Other injury of unspecified body region, initial encounter; M62.838 Other muscle spasm; R06.02 Shortness of breath; R07.9 Chest pain, unspecified; F10.10 Alcohol abuse, uncomplicated; F12.90 Cannabis use, unspecified, uncomplicated; F17.210 Nicotine dependence, cigarettes, uncomplicated; Z71.6 Tobacco abuse counseling
CPT/HCPCS: 80053; 82550; 82948; 83036; 83735; 84100; 84439; 84443; 84484; 85025; 87040; 93306; 94150; 94640; 94664; 96361; 96365; 96366; 96372; 96375; 96376; 99285; G0378; J1650; J1885; J1956; J2270; J2405; J2920; J7030